=== PATIENT | female | born 1975 | race Asian ===

== ENCOUNTER 2022-09-23 06:05 | Day surgery (SDC) | payer OTHER ==
[2022-09-23] VITALS (10 sets, daily range): BP systolic 74–152; BP diastolic 34–90
[~2022-09-23] VITALS: Ht 162.6 cm; Wt 60.8 kg
[~2022-09-23 06:05] MED LIST: ASCO100031 PO; CALC-1125 PO; CYAN1TAB44 PO; HYDR25TA PO; VITA100049 PO; VITAMIN D PO; [UNRECOGNIZED DRUG - CODE] PO
[2022-09-23] MEDS ORDERED: PROPOFOL 10 MG/ML 20ML VIAL IV ONE ×2 (07:01→07:15)
[2022-09-23] MEDS ORDERED: LIDOCAINE HCL-MPF 2% 10ML AMP IJ ONE (07:02)
[2022-09-23] MEDS ORDERED: PHENYLEPHRINE HCL 10 MG/ML 1ML VIAL IV ONE (07:21)
== END 2022-09-23 08:20 | disposition home or self-care (01) ==
LOC: DAH 06:05 → EDSTATUS 14:09
PROVIDERS: ATTEND Internal Medicine Gastroenterology
DX: Z12.11 Encounter for screening for malignant neoplasm of colon (principal); Z20.822 Contact with and (suspected) exposure to COVID-19; K64.0 First degree hemorrhoids; D12.0 Benign neoplasm of cecum; I10 Essential (primary) hypertension; E66.9 Obesity, unspecified; K59.00 Constipation, unspecified; Z68.24 Body mass index [BMI] 24.0-24.9, adult
CPT/HCPCS: 87426; 45380; 84703; 36415; J2704 ×2; J2370; J3490; A4620; A4215 ×2; A4223; A4222; A4221; A4663; A4216; J7030; A4606

== ENCOUNTER → 2024-10-16 | Outpatient (CLI) | payer OTHER ==
[~2024-10-16] MED LIST changes: +IOHEXOL-350 75 ML VIAL IV ONE; -VITA100049 PO; +VITA100059 PO
--- NOTE | 2024-10-16 12:09 | HMCIMG ---
CT ANGIO HEAD AND NECK REASON: Nontraumatic intracerebral hemorrhage, intraventricular TECHNIQUE: Images were obtained from thoracic inlet through the vertex of the skull before and after bolus IV infusion of 75 ml of Omnipaque 350. 2D and 3D multiplanar reconstruction images were obtained in the head and neck. FINDINGS: Pre contrast images show normal-appearing brain parenchyma. Ventricles and sulci appear normal. There is no evidence of intracranial hemorrhage. Post contrast images in the neck show normal-appearing common and internal carotid arteries. Bifurcations appear unremarkable. There is no evidence of atherosclerotic change or focal narrowing. Images in the brain demonstrate normal-appearing internal carotid arteries. Anterior, middle and posterior cerebral arteries appear normal. Posterior fossa vessels are unremarkable as well. There is no evidence of aneurysm or AVM. There is no evidence of focal vessel occlusion. IMPRESSION: Normal CT angiography of the head and neck. CT was performed with one or more following dose reduction techniques: automated exposure control, adjustment of the mA and kv according to patient's size, or use of a iterative reconstruction technique.
== END | disposition home or self-care (01) ==
LOC: RAH 08:54
PROVIDERS: ATTEND Neurological Surgery
DX: I61.5 Nontraumatic intracerebral hemorrhage, intraventricular (principal)
CPT/HCPCS: 70496; 70498; Q9967